=== PATIENT | male | born 1990 | race Two or more races ===

== ENCOUNTER 2020-01-02 15:36 | Emergency (ER) | payer BC ==
[~2020-01-02] VITALS: Ht 172.7 cm; Wt 100.0 kg
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
[2020-01-02 16:54] LABS: BASOPHILS % (AUTO) 0 % (0-1); EOSINOPHILS % (AUTO) 2 % (1-7); LYMPHOCYTES % (AUTO) 16 % (22-44); MEAN CORPUSCULAR HEMOGLOBIN 31.5 pg (27.5-34.5); MEAN CORPUSCULAR HGB CONC 33.1 g/dL (33.2-36.2); MEAN PLATELET VOLUME 7.3 fL (7.4-10.4); MONOCYTES % (AUTO) 9 % (2-9); NEUTROPHILS % (AUTO) 73 % (42-75); PLATELET COUNT 447 x10^3/uL (130-400); RED BLOOD COUNT 5.29 x10^6/uL (4.38-5.82); RED CELL DISTRIBUTION WIDTH 13.3 % (9.4-14.8)
[2020-01-02 17:00] LABS: MD NO
[2020-01-02 17:03] LABS: ALANINE AMINOTRANSFERASE 20 U/L (12-78); ALBUMIN 4.8 g/dL (3.4-5.0); ANION GAP 16 mmol/L (5-15); CALCIUM 9.1 mg/dL (8.5-10.1); CHLORIDE 109 mmol/L (98-107); CREATININE 1.06 mg/dL (0.7-1.3); SALICYLATE LEVEL 4.2 mg/dL (2.8-20.0)
[2020-01-02 17:14] LABS: ALKALINE PHOSPHATASE 58 U/L (45-117); BILIRUBIN,TOTAL 0.3 mg/dL (0.2-1.0); TOTAL PROTEIN 8.8 g/dL (6.4-8.2)
--- NOTE | 2020-01-02 18:48 | NUR ---
pt sleeping, meal tray avaiable, sitter present
--- NOTE | 2020-01-02 19:06 | NUR ---
Late entry for 1850: Report from AMY Mckeon. Pt ambulatory to bathroom for UA with steady gait.
[2020-01-02 19:20] VITALS: BP 140/88
--- NOTE | 2020-01-02 19:21 | NUR ---
Pt denies SI/ HI. No physical complaints.
[2020-01-02 19:24] LABS: AMPHETAMINE SCREEN, URINE Negative (Negative); BARBITURATE SCREEN, URINE Negative (Negative); BENZODIAZEPINE SCREEN, URINE Negative (Negative); CANNABINOID SCREEN, URINE Positive (Negative); COCAINE SCREEN, URINE Negative (Negative); METHADONE SCREEN, URINE Negative (Negative); OPIATE SCREEN, URINE Negative (Negative)
== END 2020-01-02 21:04 | disposition home or self-care (01) ==
LOC: ED 20:00
DX: F30.10 Manic episode without psychotic symptoms, unspecified (principal); F10.120 Alcohol abuse with intoxication, uncomplicated; F12.10 Cannabis abuse, uncomplicated; Y90.9 Presence of alcohol in blood, level not specified
CPT/HCPCS: 36415; 80053; 80307; 84443; 85025; 99284